=== PATIENT | male | born 1985 | race Caucasian/White ===

== ENCOUNTER → 2016-07-06 | Outpatient (CLI) | payer OTHER ==
[~2016-07-06] MED LIST: ASPCH81X PO; CHOL400C PO; CITA20TA9 PO; CYCL1CAP PO; DVN80 PO; FRS/80 PO; LAMO200T PO; MAGN400T24 PO; MULTTAB PO; OFLO0.3D4 OTL; OYST500T47 PO; PANT1TAB48 PO; PRAV20TA2 PO; PRED10TA PO; PRED50TA PO; SULF1TAB92 PO; TRAZ-119 PO
[2016-07-06 14:45] LABS: BASO % 0.4 %; BASO ABS # 0.05 K/uL (0-0.2); COMPLETE YES; EOS % 3.4 %; HEMATOCRIT 44.8 % (42-52); IG% 0.4 %; LYMPH ABS # 2.72 K/uL (1.2-3.4); MEAN CELL VOLUME 86.7 fL (80-100); MEAN CORPUSCULAR HEMOGLOBIN 29.8 pg (25-34); MEAN CORPUSCULAR HGB CONC 34.4 g/dl (32-36); MEAN PLATELET VOLUME 10.3 fL (7.4-10.4); MONO % 5.5 %; NEUT % 66.3 %; PLATELET COUNT 376 K/uL (130-400); RED BLOOD COUNT 5.17 M/uL (4.7-6.1); WHITE BLOOD COUNT 11.33 K/uL (4.8-10.8)
[2016-07-06 15:08] LABS: CALCIUM 8.5 mg/dl (8.5-10.1)
[2016-07-06 15:10] LABS: BLOOD UREA NITROGEN 27 mg/dl (7-18); BUN/CREATININE RATIO 24.5 (10-20); CARBON DIOXIDE 27 mmol/L (21-32); CHLORIDE 108 mmol/L (98-107); GLUCOSE 98 mg/dl (70-99); POTASSIUM 4.2 mmol/L (3.5-5.1); SODIUM 142 mmol/L (136-145)
[2016-07-06 15:29] LABS: URINE PROTIEN/CREAT RATIO 6.6 (0-0.2); URINE TOTAL PROTEIN 610.3 mg/dl (0-11.9)
== END | disposition home or self-care (01) ==
LOC: C.LAB1850 13:24
PROVIDERS: ATTEND Physician Assistant
DX: N18.9 Chronic kidney disease, unspecified (principal); N04.9 Nephrotic syndrome with unspecified morphologic changes